=== PATIENT | female | born 1960 | race Caucasian/White ===

== ENCOUNTER 2020-10-11 20:48 | Inpatient (IN) | payer BC, OTHER ==
[2020-10-11] MEDS ORDERED: diphenhydrAMINE 50 MG/ML SDV IVPUSH ONE (21:28)
[2020-10-11] MEDS ORDERED: Ondansetron 4 MG/2 ML SDV IVPUSH ONE (21:28)
[2020-10-11] MEDS ORDERED: Sodium Chloride 0.9% 1,000 ML IV ONE (21:28)
--- NOTE | 2020-10-11 21:38 | EDM.PDOC ---
ED HPI GENERAL MEDICAL PROBLEM - General Chief Complaint: Gastrointestinal Problem Stated Complaint: [facility] Time Seen by Provider: 10/11/20 20:58 Source of Information: Reports: Patient History Limitations: Reports: No Limitations - History of Present Illness INITIAL COMMENTS - FREE TEXT/NARRATIVE: Ms. Cintron is a pleasant 60-year-old woman who is now brought to the ED by EMS stating that she developed dizziness with nausea and 5 episodes of emesis, along with a headache, around 16:00 this afternoon. She is unable to elaborate on her dizziness; she states that it does not feel like she is lightheaded or that she is about to pass out, but she also denies that the room is spinning - she states that she just feels "dizzy". She states that she had BPPV in the past, and that this is different than that. She states that her dizziness is improved if she keeps her eyes closed, but made worse if she opens her eyes. It is also made worse if she turns her head, particularly to the left. The patient reports that she switched from a low-carb diet to a keto diet 3 days ago, including taking a beta hydroxybutyrate supplement. She states that she drinks "quite a bit" of water, but is unable to elaborate how much or for how long. Here in the ED, the patient is found to be hemodynamically stable, afebrile, saturating 100% on room air. She is keeping her eyes closed and is reluctant to answer questions, stating that she has already answered them 4 times, but does not appear to be in acute distress. Prior to this afternoon, the patient denies having a recent fever, chills, sore throat, ear pain, nasal or sinus congestion, cough, dyspnea, chest pain, palpitations, nausea, vomiting, constipation, diarrhea, abdominal pain, urinary symptoms, recent weight gain or weight loss, recent bloody bowel movements or black bowel movements, recent joint aches, headaches, or rashes. The patient's PCP is Dr. Fito Yanez. Headache Pain Score (Numeric/FACES): 10 - Related Data Allergies Allergy/AdvReac Type Severity Reaction Status Date / Time No Known Allergies Allergy Verified 10/11/20 20:55 Home Meds: Home Meds Escitalopram Oxalate 30 mg PO QAM 08/02/13 [History] Levothyroxine Sodium 1 tab PO QAM 08/02/13 [History] Mometasone Furoate [Nasonex [place]] 2 spray HILLARY BID PRN 08/02/13 [History] Venlafaxine HCl [Venlafaxine ER] 1 cap PO QAM 08/02/13 [History] Rosuvastatin [Crestor] 10 mg PO DAILY 10/11/20 [History] metFORMIN [Glucophage] 500 mg PO BIDMEALS 10/11/20 [History] Past Medical History HEENT History: Reports: Allergic Rhinitis Cardiovascular History: Reports: High Cholesterol Psychiatric History: Reports: Anxiety (untreated), Depression Endocrine/Metabolic History: Reports: Diabetes, Type II, Hypothyroidism Oncologic (Cancer) History: Reports: Uterine (s/p hysterectomy) - Past Surgical History GI Surgical History: Reports: Appendectomy Female Surgical History: Reports: Hysterectomy (complete, 2013) Musculoskeletal Surgical History: Reports: Other (See Below) (Left bunionectomy x 4) Social & Family History - Tobacco Use Tobacco Use Status *Q: Never Tobacco User Second Hand Smoke Exposure: No - Alcohol Use Alcohol Use History: Yes Alcohol Use Frequency: Rarely - Recreational Drug Use Recreational Drug Use: No - Living Situation & Occupation Living situation: Reports: Single, Alone Occupation: Employed (Teacher) ED ROS GENERAL - Review of Systems Review Of Systems: Comprehensive ROS is negative, except as noted in HPI. ED EXAM, DIZZINESS - Physical Exam Exam: See Below Exam Limited By: No Limitations General Appearance: Alert, WD/WN, No Apparent Distress Eye Exam: Bilateral Eye: EOMI, Normal Inspection, PERRL Ears: Normal External Exam, Normal Canal, Hearing Grossly Normal, Normal TMs Nose: Normal Inspection, Normal Mucosa, No Blood Throat/Mouth: Normal Inspection, Normal Lips, Normal Teeth, Normal Gums, Normal Oropharynx, Normal Voice, No Airway Compromise Head Exam: Atraumatic, Normocephalic Vertigo: worsens with head to L, reproducible Neck: Normal Inspection, Supple, Non-Tender, Full Range of Motion. No: Lymphadenopathy (L), Lymphadenopathy (R) Respiratory/Chest: No Respiratory Distress, Lungs Clear, Normal Breath Sounds, No Accessory Muscle Use Cardiovascular: Normal Peripheral Pulses, Regular Rate, Rhythm, No Edema, No Gallop, No JVD, No Murmur, No Rub GI/Abdominal: Normal Bowel Sounds, Soft, Non-Tender, No Organomegaly, No Distention, No Abnormal Bruit, No Mass Neurological: Alert, Normal Dorsiflexion, CN II-XII Intact, Normal Plantar Flexion, Normal Reflexes, No Motor/Sensory Deficits, Oriented x 3, Other (Normal hand flip bilaterally, finger/nose bilaterally, heel/mulligan bilaterally. [place]- Hallpike to the left induced dizziness, but no nystagmus. Patient then vomited.) Back Exam: Normal Inspection, Full Range of Motion, NT Extremities: Normal Inspection, Normal Range of Motion, No Pedal Edema, Normal Capillary Refill Psychiatric: Normal Affect Skin Exam: Warm, Dry, Intact, Normal Color, No Rash #1 Interpretation EKG Date: 10/11/20 Time: 21:58 Rhythm: NSR Rate (Beats/Min): 71 [place]: Normal P-Wave: Present QRS: Normal ST-T: Normal QT: Normal Comparison: No Change (02/16/2015) Course - Vital Signs Last Recorded V/S: Last Vital Signs Temp 35.5 C L 10/11/20 20:52 Pulse 68 10/11/20 20:52 Resp 16 10/11/20 20:52 BP 125/64 10/11/20 20:52 Pulse Ox 100 10/11/20 20:52 Orthostatic Blood Pressure [ 132/66 Standing] Orthostatic Blood Pressure [ 139/70 Sitting] Orthostatic Blood Pressure [ 134/63 Supine] - Orders/Labs/Meds Orders: Active Orders 24 hr Category Date Time Status EKG Documentation Completion [RC] STAT Care 10/11/20 21:26 Active Orthostatic Vital Signs [RC] STAT Care 10/11/20 21:26 Active Ang Head [CT] Stat Exams 10/11/20 22:00 Taken Ang Neck [CT] Stat Exams 10/11/20 22:00 Taken Head wo Cont [CT] Stat Exams 10/11/20 21:25 Taken BASIC METABOLIC PANEL,BMP [CHEM] Stat Lab 10/12/20 07:18 Ordered Sodium Chloride 0.9% [Normal Saline] 1,000 ml Med 10/11/20 23:15 Active IV ASDIRECTED Sodium Chloride 0.9% [Normal Saline] 100 ml Med 10/11/20 22:30 Active IV ASDIRECTED Sodium Chloride 0.9% [Saline Flush] Med 10/11/20 22:30 Active 10 ml FLUSH BOLUS Medication Orders Sodium Chloride (Normal Saline) 100 mls @ 60 drops/hr IV ASDIRECTED EMEKA Last Admin: 10/12/20 01:11 Dose: 60 drops/hr Documented by: VELIA Sodium Chloride (Normal Saline) 1,000 mls @ 150 mls/hr IV ASDIRECTED EMEKA Last Admin: 10/12/20 07:26 Dose: 150 mls/hr Documented by: Infusion: 10/12/20 06:38 Dose: 150 mls/hr Documented by: Admin: 10/11/20 23:57 Dose: 150 mls/hr Documented by: RAGHAV Sodium Chloride (Sodium Chloride 0.9% 10 Ml Syringe) 10 ml FLUSH BOLUS EMEKA Last Admin: 10/12/20 01:12 Dose: 10 ml Documented by: VELIA Labs: Laboratory Tests 10/11/20 10/11/20 10/11/20 Range/Units 21:40 21:40 21:40 WBC 6.85 (3.98-10.04) K/mm3 RBC 4.53 (3.98-5.22) M/mm3 Hgb 13.9 D (11.2-15.7) gm/dl Hct 38.7 (34.1-44.9) % MCV 85.4 (79.4-94.8) fl MCH 30.7 (25.6-32.2) pg MCHC 35.9 H (32.2-35.5) g/dl RDW Std Deviation 36.0 L (36.4-46.3) fL Plt Count 252 (182-369) K/mm3 MPV 9.2 L (9.4-12.3) fl Neutrophils % (Manual) 81 H (40-60) % Band Neutrophils % 0 (0-10) % Lymphocytes % (Manual) 16 L (20-40) % Atypical Lymphs % 0 % Monocytes % (Manual) 3 (2-10) % Eosinophils % (Manual) 0 L (0.7-5.8) % Basophils % (Manual) 0 L (0.1-1.2) Platelet Estimate Adequate RBC Morph Comment Normal PT (9.7-12.0) SECONDS INR APTT (21.7-31.4) SECONDS Puncture Site ABG pH (7.35-7.45) ABG pCO2 (35.0-45.0) mmHg ABG pO2 (80.0-100.0) mmHg ABG HCO3 (22.0-26.0) meq/L ABG O2 Saturation (96.0-97.0) % ABG Base Excess (-2-2.0) A-a Gradient mmHg O2 Delivery Device FiO2 (21.00-100.00) % Sodium 122 L D (136-145) mEq/L Potassium 4.1 (3.5-5.1) mEq/L Chloride 87 L D (98-107) mEq/L Carbon Dioxide 21 (21-32) mEq/L Anion Gap 18.1 H (5-15) BUN 11 (7-18) mg/dL Creatinine 0.6 (0.55-1.02) mg/dL Est Cr Clr Drug Dosing 90.84 mL/min Estimated GFR (MDRD) > 60 (>60) mL/min BUN/Creatinine Ratio 18.3 H (14-18) Glucose 161 H (70-99) mg/dL Lactic Acid 1.2 (0.4-2.0) mmol/L Calcium 8.0 L (8.5-10.1) mg/dL Magnesium 1.6 L (1.8-2.4) mg/dL Total Bilirubin 0.6 (0.2-1.0) mg/dL AST 30 (15-37) U/L ALT 40 (14-59) U/L Alkaline Phosphatase 89 (46-116) U/L Troponin I < 0.017 (0.00-0.056) ng/mL Total Protein 6.4 (6.4-8.2) g/dl Albumin 3.4 (3.4-5.0) g/dl Globulin 3.0 gm/dL Albumin/Globulin Ratio 1.1 (1-2) Ketones (0.0-0.3) mM SARS-CoV-2 RNA (KAYLIE) (NEGATIVE) 10/11/20 10/11/20 10/11/20 Range/Units 21:40 21:40 21:51 WBC (3.98-10.04) K/mm3 RBC (3.98-5.22) M/mm3 Hgb (11.2-15.7) gm/dl Hct (34.1-44.9) % MCV (79.4-94.8) fl MCH (25.6-32.2) pg MCHC (32.2-35.5) g/dl RDW Std Deviation (36.4-46.3) fL Plt Count (182-369) K/mm3 MPV (9.4-12.3) fl Neutrophils % (Manual) (40-60) % Band Neutrophils % (0-10) % Lymphocytes % (Manual) (20-40) % Atypical Lymphs % % Monocytes % (Manual) (2-10) % Eosinophils % (Manual) (0.7-5.8) % Basophils % (Manual) (0.1-1.2) Platelet Estimate RBC Morph Comment PT 10.6 (9.7-12.0) SECONDS INR 0.99 APTT 30.1 (21.7-31.4) SECONDS Puncture Site ABG pH (7.35-7.45) ABG pCO2 (35.0-45.0) mmHg ABG pO2 (80.0-100.0) mmHg ABG HCO3 (22.0-26.0) meq/L ABG O2 Saturation (96.0-97.0) % ABG Base Excess (-2-2.0) A-a Gradient mmHg O2 Delivery Device FiO2 (21.00-100.00) % Sodium (136-145) mEq/L Potassium (3.5-5.1) mEq/L Chloride (98-107) mEq/L Carbon Dioxide (21-32) mEq/L Anion Gap (5-15) BUN (7-18) mg/dL Creatinine (0.55-1.02) mg/dL Est Cr Clr Drug Dosing mL/min Estimated GFR (MDRD) (>60) mL/min BUN/Creatinine Ratio (14-18) Glucose (70-99) mg/dL Lactic Acid (0.4-2.0) mmol/L Calcium (8.5-10.1) mg/dL Magnesium (1.8-2.4) mg/dL Total Bilirubin (0.2-1.0) mg/dL AST (15-37) U/L ALT (14-59) U/L Alkaline Phosphatase (46-116) U/L Troponin I (0.00-0.056) ng/mL Total Protein (6.4-8.2) g/dl Albumin (3.4-5.0) g/dl Globulin gm/dL Albumin/Globulin Ratio (1-2) Ketones 1.87 (0.0-0.3) mM SARS-CoV-2 RNA (KYALIE) Negative (NEGATIVE) 10/11/20 10/12/20 Range/Units 22:05 03:20 WBC (3.98-10.04) K/mm3 RBC (3.98-5.22) M/mm3 Hgb (11.2-15.7) gm/dl Hct (34.1-44.9) % MCV (79.4-94.8) fl MCH (25.6-32.2) pg MCHC (32.2-35.5) g/dl RDW Std Deviation (36.4-46.3) fL Plt Count (182-369) K/mm3 MPV (9.4-12.3) fl Neutrophils % (Manual) (40-60) % Band Neutrophils % (0-10) % Lymphocytes % (Manual) (20-40) % Atypical Lymphs % % Monocytes % (Manual) (2-10) % Eosinophils % (Manual) (0.7-5.8) % Basophils % (Manual) (0.1-1.2) Platelet Estimate RBC Morph Comment PT (9.7-12.0) SECONDS INR APTT (21.7-31.4) SECONDS Puncture Site Rt brachial ABG pH 7.38 (7.35-7.45) ABG pCO2 34.6 L (35.0-45.0) mmHg ABG pO2 79.0 L (80.0-100.0) mmHg ABG HCO3 19.9 L (22.0-26.0) meq/L ABG O2 Saturation 95.0 L (96.0-97.0) % ABG Base Excess -4.0 L (-2-2.0) A-a Gradient 27 mmHg O2 Delivery Device Room air FiO2 21.00 (21.00-100.00) % Sodium 130 L (136-145) mEq/L Potassium 4.2 (3.5-5.1) mEq/L Chloride 96 L (98-107) mEq/L Carbon Dioxide 22 (21-32) mEq/L Anion Gap 16.2 H (5-15) BUN 8 (7-18) mg/dL Creatinine 0.6 (0.55-1.02) mg/dL Est Cr Clr Drug Dosing 90.84 mL/min Estimated GFR (MDRD) > 60 (>60) mL/min BUN/Creatinine Ratio 13.3 L (14-18) Glucose 139 H (70-99) mg/dL Lactic Acid (0.4-2.0) mmol/L Calcium 7.9 L (8.5-10.1) mg/dL Magnesium (1.8-2.4) mg/dL Total Bilirubin (0.2-1.0) mg/dL AST (15-37) U/L ALT (14-59) U/L Alkaline Phosphatase (46-116) U/L Troponin I (0.00-0.056) ng/mL Total Protein (6.4-8.2) g/dl Albumin (3.4-5.0) g/dl Globulin gm/dL Albumin/Globulin Ratio (1-2) Ketones (0.0-0.3) mM SARS-CoV-2 RNA (KAYLIE) (NEGATIVE) Meds: Medications Generic Name Dose Route Start Last Admin Trade Name Fresilvia PRN Reason Stop Dose Admin Sodium Chloride 100 mls @ 60 drops/hr 10/11/20 22:30 10/12/20 01:11 Normal Saline IV 60 drops/hr ASDIRECTED EMEKA Administration Sodium Chloride 1,000 mls @ 150 mls/hr 10/11/20 23:15 10/12/20 07:26 Normal Saline IV 150 mls/hr ASDIRECTED EMEKA Administration Sodium Chloride 10 ml 10/11/20 22:30 10/12/20 01:12 Sodium Chloride 0.9% 10 Ml Syringe FLUSH 10 ml BOLUS EMEKA Administration Discontinued Medications Generic Name Dose Route Start Last Admin Trade Name [place] PRN Reason Stop Dose Admin Diphenhydramine HCl 50 mg 10/11/20 21:28 10/11/20 21:47 Diphenhydramine 50 Mg/Ml Sdv IVPUSH 10/11/20 21:29 50 mg ONETIME ONE Administration Sodium Chloride 1,000 mls @ 999 mls/hr 10/11/20 21:28 10/11/20 23:31 Normal Saline IV 10/11/20 22:28 Infused ONETIME ONE Infusion Dextrose/Sodium Chloride 1,000 mls @ 150 mls/hr 10/11/20 22:30 10/11/20 22:32 Dextrose 5%-Normal Saline IV 150 mls/hr ASDIRECTED EMEKA Administration Magnesium Sulfate 2 gm/ Premix 50 mls @ 25 mls/hr 10/11/20 22:57 10/11/20 23:56 IV 10/12/20 00:56 25 mls/hr ONETIME ONE Administration Iopamidol 100 ml 10/11/20 22:24 10/12/20 01:12 Iopamidol 755 Mg/Ml 100 Ml Bottle IVPUSH 10/11/20 22:25 100 ml ONETIME ONE Administration Iopamidol 25 ml 10/11/20 22:24 10/12/20 01:12 Iopamidol 755 Mg/Ml 50 Ml Bottle IVPUSH 10/11/20 22:25 50 ml ONETIME ONE Administration Lorazepam 1 mg 10/12/20 01:36 10/12/20 01:50 Lorazepam 2 Mg/Ml Sdv IVPUSH 10/12/20 01:37 1 mg ONETIME STA Administration Ondansetron HCl 4 mg 10/11/20 21:28 10/11/20 21:47 Ondansetron 4 Mg/2 Ml Sdv IVPUSH 10/11/20 21:29 4 mg ONETIME ONE Administration - Re-Assessments/Exams Free Text/Narrative Re-Assessment/Exam: 10/11/20 21:29 As above, the patient developed dizziness, nausea, vomiting, and headache around 16:00 this afternoon. It is unclear if what she is experiencing is lightheadedness or vertigo. She states that she has had BPPV in the past, and that this is different. She also reports that her dizziness is present even if she remains still, but has her eyes open, and is made worse with turning her head, particularly to the left. Her neurologic examination, including cerebellar signs, is completely normal. I was able to perform the [place]-Hallpike maneuver to the left, which induced symptoms of dizziness, but no nystagmus. When I sat her up, she then vomited. She is simply unable to proceed with checking the [place]-Hallpike maneuver to the right. I have ordered a work-up that includes orthostatics (if the patient is able to perform them), numerous blood tests, an ABG, a swab for the SARS-CoV-2 virus, a CT of the head without contrast, and an ECG. In the meantime, the patient will be given IV fluid, IV Zofran, and IV diphenhydramine. 10/11/20 22:05 [facility] called at 21:44. Case discussed with Monica at 21:51. Case then discussed with Dr. Tinoco, Neurologist on-call at [facility], at 21:53. She recommended a CT angiogram of the head and neck to evaluate for a vertebral artery thrombus or dissection. She noted that the patient would not be a thrombolytic candidate. 10/11/20 22:22 The patient is not orthostatic. I have switched the patient's IV fluid to D5 NS at 150 mL/h. 10/11/20 22:28 CT of the head without contrast is read by [facility] as "Unremarkable examination." 10/11/20 22:56 The patient's CBC is unremarkable. Her CMP is remarkable for hyponatremia of 122, and anion gap slightly elevated at 18.1, but with a bicarbonate normal at 21, and mild hyperglycemia of 161, with the remainder of her CMP being unremarkable. Her magnesium level is mildly depressed at 1.6. Her lactic acid level is within normal limits at 1.2. Her serum ketones are mildly elevated at 1.87. Her troponin is undetectably low. Her coags are within normal limits. Her ABG represents a primary anion gap metabolic acidosis with appropriately compensated respiratory alkalosis and additional metabolic alkalosis. Results of her swab for the SARS-CoV-2 virus, and the CT angiogram of her head and neck are still pending. Based on the above, I have ordered a 2 g Mg-rider. I will switch her IV fluid to NS at 150 mL/h. 10/11/20 23:44 The patient swab for the SARS-CoV-2 virus is negative. 10/12/20 02:45 CT angiogram of the neck with IV contrast is read by [facility] as "No significant stenosis or dissection is present. No major vessel occlusion is identified." 10/12/20 03:06 CT angiogram of the head with IV contrast is read by [facility] as "No significant stenosis or occlusion is identified in the anterior circulation. The posterior circulation is poorly seen." At this time, it appears that the patient's symptoms are due to mild cerebral edema due to hyponatremia due to excessive water intake (water toxicity). The severity of symptoms is often related to the rapidity with which the hyponatremia develops, which, in this case, is most likely acute. As there is no suggestion of renal dysfunction, this should be correctable with NS. I will order a BMP to see how we are doing. With respect to the patient's ketogenic diet and consumption of a beta hydroxybutyrate supplement, we do see from her labs that she has some degree of ketosis, manifested by a modestly elevated serum ketone level, and possibly a small degree of ketoacidosis; her bicarbonate is within normal limits, but her anion gap is mildly elevated at 18.1. This would be expected with mild ketoacidosis, as fasting ketoacidosis produces acetone, which is not an acid and therefore does not consume bicarbonate, but does contribute to an elevation in the anion gap and serum ketone level. Ketosis can lead to dehydration, however, we see no evidence of that, as the patient's sodium is low, not high, and her renal function is normal. While I don't agree with the patient's use of a beta hydroxybutyrate supplement, it does not appear to be a significant contributor to the patient's current condition. 10/12/20 04:16 The patient's BMP is remarkable for sodium of 130, and anion gap slightly elevated at 16.2, but with a bicarbonate normal at 22, and mild hyperglycemia of 139, with the remainder of her BMP being unremarkable. The plan at this time will be to continue NS at 150 mL/h. 10/12/20 07:18 The patient is looking and feeling much better. At this time, she is completely asymptomatic. She reports that she has been drinking a lot of water for about 6 months, but confirmed that she switched from a low-carb diet to a keto diet, including a beta hydroxybutyrate supplement, about 3 or 4 days ago. I will order a repeat BMP at this time, but I recommended to the patient that we place her into observation so that her sodium can be corrected slowly over a day. The patient agreed. 10/12/20 07:[address] Glover, Hospitalist, at 07:40, here in the ED. He agreed to place the patient into observation. Departure - Departure Time of Disposition: 07:40 Disposition: Refer to Observation Condition: Good Clinical Impression: Acute hyponatremia, Hypomagnesemia, Ketosis - Discharge Information *PRESCRIPTION DRUG MONITORING PROGRAM REVIEWED*: Not Applicable *COPY OF PRESCRIPTION DRUG MONITORING REPORT IN PATIENT AMEE: Not Applicable Referrals: Fito Yanez MD [Primary Care Provider] - Forms: ED Department Discharge Sepsis Event Note (ED) - Evaluation Sepsis Screening Result: No Definite Risk - Focused Exam Vital Signs: Vital Signs Temp Pulse Resp BP Pulse Ox 10/11/20 20:52 35.5 C L 68 16 125/64 100 - My Orders Last 24 Hours: My Active Orders 10/11/20 21:25 Head wo Cont [CT] Stat 10/11/20 21:26 EKG Documentation Completion [RC] STAT Orthostatic Vital Signs [RC] STAT 10/11/20 22:00 Ang Head [CT] Stat Ang Neck [CT] Stat 10/11/20 22:30 Sodium Chloride 0.9% [Normal Saline] 100 ml IV ASDIRECTED Sodium Chloride 0.9% [Saline Flush] 10 ml FLUSH BOLUS 10/11/20 23:15 Sodium Chloride 0.9% [Normal Saline] 1,000 ml IV ASDIRECTED 10/12/20 07:18 BASIC METABOLIC PANEL,BMP [CHEM] Stat - Assessment/Plan Last 24 Hours: My Active Orders 10/11/20 21:25 Head wo Cont [CT] Stat 10/11/20 21:26 EKG Documentation Completion [RC] STAT Orthostatic Vital Signs [RC] STAT 10/11/20 22:00 Ang Head [CT] Stat Ang Neck [CT] Stat 10/11/20 22:30 Sodium Chloride 0.9% [Normal Saline] 100 ml IV ASDIRECTED Sodium Chloride 0.9% [Saline Flush] 10 ml FLUSH BOLUS 10/11/20 23:15 Sodium Chloride 0.9% [Normal Saline] 1,000 ml IV ASDIRECTED 10/12/20 07:18 BASIC METABOLIC PANEL,BMP [CHEM] Stat
[2020-10-11] MEDS ORDERED: Iopamidol 755 Mg/ML 100 ML Bottle IVPUSH ONE (22:24)
[2020-10-11] MEDS ORDERED: Iopamidol 755 MG/ML 50 ML Bottle IVPUSH ONE (22:24)
[2020-10-11] MEDS ORDERED: Sodium Chloride 0.9% 10 ML Syringe FLUSH SCH (22:30)
[2020-10-11] MEDS ORDERED: Sodium Chloride 0.9% 100 ML IV SCH (22:30)
[2020-10-11] MEDS ORDERED: Dextrose 5%-0.9% NaCl 1,000 ML IV SCH (22:30)
[2020-10-11] MEDS ORDERED: Magnesium Sulfate/Water 2 GM in Premix Bag 1 BAG IV ONE (22:57)
[2020-10-11] MEDS: Sodium Chloride 0.9% 1,000 ML IV SCH (23:57)
[2020-10-12] MEDS ORDERED: LORazepam 2 MG/ML SDV IVPUSH STA (01:36)
[2020-10-12] MEDS: Sodium Chloride 0.9% 1,000 ML IV SCH (07:26)
[2020-10-12] MEDS ORDERED: Docusate Sodium 100 MG Cap PO PRN (07:54)
[2020-10-12] MEDS ORDERED: Ondansetron 4 MG Tab.DIS PO PRN (07:54)
--- NOTE | 2020-10-12 08:04 | PCM.HP.2 ---
H&P History of Present Illness - General Date of Service: 10/12/20 Admit Problem/Dx: Admission Diagnosis/Problem Admission Diagnosis/Problem Hyponatremia Source of Information: Patient, Provider - History of Present Illness Initial Comments - Free Text/Narative: Patient is a 60-year-old female with a past medical history significant for hypothyroidism, type 2 diabetes mellitus, uterine cancer status post hysterectomy who presents to the [facility] emergency department with a chief complaint of lightheadedness/dizziness, vertigo change in his symptoms, nausea and vomiting. Patient states that she has been feeling unwell for the past 72 hours after starting a new diet plan to limit her carbohydrates. She has recently begun a keto diet. She has also been taking random supplements. She has been drinking at least 8 to 10, 20oz cups of water per day. She has been generally feeling unwell for the past 2 to 3 days which culminated in significant weakness, and the aforementioned symptoms. The room spinning around her was the most problematic for her as this was causing significant debra sea and vomiting. This is what prompted her visit to the emergency department. Patient states that she has a history of benign positional vertigo, but this felt different than that. Imaging of her head and CTA were negative for acute neurologic event. Laboratory studies were notable for sodium of 122. As BPV was a possible diagnosis the patient underwent examination in the emergency department which was negative for nystagmus. Dulce-Hallpike maneuver did not eliminate her symptoms. The patient was administered normal saline at 150 mL/h overnight. It is reported by ER personnel as the patient is doing a lot better and is nearly asymptomatic. Her sodium levels have climbed to 130 in 5-1/2 hours. The patient was referred for admission for symptomatic hyponatremia and further correction if needed. Of note, the patient takes medication for depression and anxiety which was likely contributing to her hyponatremia. 14 point review of systems was reviewed with the patient entirely and only pertinent for the above information. CODE STATUS: Full code. Headache Pain Score (Numeric/FACES): 10 - Related Data Allergies/Adverse Reactions: Allergies Allergy/AdvReac Type Severity Reaction Status Date / Time No Known Allergies Allergy Verified 10/11/20 20:55 Home Medications: Home Meds Escitalopram Oxalate 30 mg PO QAM 08/02/13 [History] Levothyroxine Sodium 1 tab PO QAM 08/02/13 [History] Mometasone Furoate [Nasonex [place]] 2 spray HILLARY BID PRN 08/02/13 [History] Venlafaxine HCl [Venlafaxine ER] 1 cap PO QAM 08/02/13 [History] Rosuvastatin [Crestor] 10 mg PO DAILY 10/11/20 [History] metFORMIN [Glucophage] 500 mg PO BIDMEALS 10/11/20 [History] Past Medical History HEENT History: Reports: Allergic Rhinitis Cardiovascular History: Reports: High Cholesterol Psychiatric History: Reports: Anxiety (untreated), Depression Endocrine/Metabolic History: Reports: Diabetes, Type II, Hypothyroidism Oncologic (Cancer) History: Reports: Uterine (s/p hysterectomy) Other Oncologic History: cancer of the uterine lining - Past Surgical History GI Surgical History: Reports: Appendectomy Female Surgical History: Reports: Hysterectomy (complete, 2013) Musculoskeletal Surgical History: Reports: Other (See Below) (Left bunionectomy x 4) Social & Family History - Tobacco Use Tobacco Use Status *Q: Never Tobacco User Second Hand Smoke Exposure: No - Recreational Drug Use Recreational Drug Use: No - Living Situation & Occupation Living situation: Reports: Single, Alone Occupation: Employed (Teacher) H&P Review of Systems - Review of Systems: Review Of Systems: Comprehensive ROS is negative, except as noted in HPI. Exam - Exam Exam: See Below - Vital Signs Vital Signs: Last Vital Signs Temp 96 F L 10/11/20 20:52 Pulse 68 10/11/20 20:52 Resp 16 10/11/20 20:52 BP 125/64 10/11/20 20:52 Pulse Ox 100 10/11/20 20:52 Orthostatic Blood Pressure [ 132/66 Standing] Orthostatic Blood Pressure [ 139/70 Sitting] Orthostatic Blood Pressure [ 134/63 Supine] Weight: 171 lb - Exam General: Alert, Oriented HEENT: Conjunctiva Clear, EOMI, Mucosa Moist & [place], Nares Patent Neck: Supple Lungs: Clear to Auscultation, Normal Respiratory Effort Cardiovascular: Regular Rate, Regular Rhythm GI/Abdominal Exam: Normal Bowel Sounds, Soft, Non-Tender Extremities: Normal Inspection, No Pedal Edema Skin: Warm, Dry Neurological: Cranial Nerves Intact, Other (No nystagmus) Neuro Extensive - Mental Status: Oriented x3 Neuro Extensive - Motor, Sensory, Reflexes: No: Tremor - Patient Data Lab Results Last 24 hrs: Laboratory Results - last 24 hr 10/11/20 10/11/20 10/11/20 Range/Units 21:40 21:40 21:40 WBC 6.85 (3.98-10.04) K/mm3 RBC 4.53 (3.98-5.22) M/mm3 Hgb 13.9 D (11.2-15.7) gm/dl Hct 38.7 (34.1-44.9) % MCV 85.4 (79.4-94.8) fl MCH 30.7 (25.6-32.2) pg MCHC 35.9 H (32.2-35.5) g/dl RDW Std Deviation 36.0 L (36.4-46.3) fL Plt Count 252 (182-369) K/mm3 MPV 9.2 L (9.4-12.3) fl Neutrophils % (Manual) 81 H (40-60) % Band Neutrophils % 0 (0-10) % Lymphocytes % (Manual) 16 L (20-40) % Atypical Lymphs % 0 % Monocytes % (Manual) 3 (2-10) % Eosinophils % (Manual) 0 L (0.7-5.8) % Basophils % (Manual) 0 L (0.1-1.2) Platelet Estimate Adequate RBC Morph Comment Normal PT (9.7-12.0) SECONDS INR APTT (21.7-31.4) SECONDS Puncture Site ABG pH (7.35-7.45) ABG pCO2 (35.0-45.0) mmHg ABG pO2 (80.0-100.0) mmHg ABG HCO3 (22.0-26.0) meq/L ABG O2 Saturation (96.0-97.0) % ABG Base Excess (-2-2.0) A-a Gradient mmHg O2 Delivery Device FiO2 (21.00-100.00) % Sodium 122 L D (136-145) mEq/L Potassium 4.1 (3.5-5.1) mEq/L Chloride 87 L D (98-107) mEq/L Carbon Dioxide 21 (21-32) mEq/L Anion Gap 18.1 H (5-15) BUN 11 (7-18) mg/dL Creatinine 0.6 (0.55-1.02) mg/dL Est Cr Clr Drug Dosing 90.84 mL/min Estimated GFR (MDRD) > 60 (>60) mL/min BUN/Creatinine Ratio 18.3 H (14-18) Glucose 161 H (70-99) mg/dL Lactic Acid 1.2 (0.4-2.0) mmol/L Calcium 8.0 L (8.5-10.1) mg/dL Magnesium 1.6 L (1.8-2.4) mg/dL Total Bilirubin 0.6 (0.2-1.0) mg/dL AST 30 (15-37) U/L ALT 40 (14-59) U/L Alkaline Phosphatase 89 (46-116) U/L Troponin I < 0.017 (0.00-0.056) ng/mL Total Protein 6.4 (6.4-8.2) g/dl Albumin 3.4 (3.4-5.0) g/dl Globulin 3.0 gm/dL Albumin/Globulin Ratio 1.1 (1-2) Ketones (0.0-0.3) mM SARS-CoV-2 RNA (KAYLIE) (NEGATIVE) 10/11/20 10/11/20 10/11/20 Range/Units 21:40 21:40 21:51 WBC (3.98-10.04) K/mm3 RBC (3.98-5.22) M/mm3 Hgb (11.2-15.7) gm/dl Hct (34.1-44.9) % MCV (79.4-94.8) fl MCH (25.6-32.2) pg MCHC (32.2-35.5) g/dl RDW Std Deviation (36.4-46.3) fL Plt Count (182-369) K/mm3 MPV (9.4-12.3) fl Neutrophils % (Manual) (40-60) % Band Neutrophils % (0-10) % Lymphocytes % (Manual) (20-40) % Atypical Lymphs % % Monocytes % (Manual) (2-10) % Eosinophils % (Manual) (0.7-5.8) % Basophils % (Manual) (0.1-1.2) Platelet Estimate RBC Morph Comment PT 10.6 (9.7-12.0) SECONDS INR 0.99 APTT 30.1 (21.7-31.4) SECONDS Puncture Site ABG pH (7.35-7.45) ABG pCO2 (35.0-45.0) mmHg ABG pO2 (80.0-100.0) mmHg ABG HCO3 (22.0-26.0) meq/L ABG O2 Saturation (96.0-97.0) % ABG Base Excess (-2-2.0) A-a Gradient mmHg O2 Delivery Device FiO2 (21.00-100.00) % Sodium (136-145) mEq/L Potassium (3.5-5.1) mEq/L Chloride (98-107) mEq/L Carbon Dioxide (21-32) mEq/L Anion Gap (5-15) BUN (7-18) mg/dL Creatinine (0.55-1.02) mg/dL Est Cr Clr Drug Dosing mL/min Estimated GFR (MDRD) (>60) mL/min BUN/Creatinine Ratio (14-18) Glucose (70-99) mg/dL Lactic Acid (0.4-2.0) mmol/L Calcium (8.5-10.1) mg/dL Magnesium (1.8-2.4) mg/dL Total Bilirubin (0.2-1.0) mg/dL AST (15-37) U/L ALT (14-59) U/L Alkaline Phosphatase (46-116) U/L Troponin I (0.00-0.056) ng/mL Total Protein (6.4-8.2) g/dl Albumin (3.4-5.0) g/dl Globulin gm/dL Albumin/Globulin Ratio (1-2) Ketones 1.87 (0.0-0.3) mM SARS-CoV-2 RNA (KAYLIE) Negative (NEGATIVE) 10/11/20 10/12/20 Range/Units 22:05 03:20 WBC (3.98-10.04) K/mm3 RBC (3.98-5.22) M/mm3 Hgb (11.2-15.7) gm/dl Hct (34.1-44.9) % MCV (79.4-94.8) fl MCH (25.6-32.2) pg MCHC (32.2-35.5) g/dl RDW Std Deviation (36.4-46.3) fL Plt Count (182-369) K/mm3 MPV (9.4-12.3) fl Neutrophils % (Manual) (40-60) % Band Neutrophils % (0-10) % Lymphocytes % (Manual) (20-40) % Atypical Lymphs % % Monocytes % (Manual) (2-10) % Eosinophils % (Manual) (0.7-5.8) % Basophils % (Manual) (0.1-1.2) Platelet Estimate RBC Morph Comment PT (9.7-12.0) SECONDS INR APTT (21.7-31.4) SECONDS Puncture Site Rt brachial ABG pH 7.38 (7.35-7.45) ABG pCO2 34.6 L (35.0-45.0) mmHg ABG pO2 79.0 L (80.0-100.0) mmHg ABG HCO3 19.9 L (22.0-26.0) meq/L ABG O2 Saturation 95.0 L (96.0-97.0) % ABG Base Excess -4.0 L (-2-2.0) A-a Gradient 27 mmHg O2 Delivery Device Room air FiO2 21.00 (21.00-100.00) % Sodium 130 L (136-145) mEq/L Potassium 4.2 (3.5-5.1) mEq/L Chloride 96 L (98-107) mEq/L Carbon Dioxide 22 (21-32) mEq/L Anion Gap 16.2 H (5-15) BUN 8 (7-18) mg/dL Creatinine 0.6 (0.55-1.02) mg/dL Est Cr Clr Drug Dosing 90.84 mL/min Estimated GFR (MDRD) > 60 (>60) mL/min BUN/Creatinine Ratio 13.3 L (14-18) Glucose 139 H (70-99) mg/dL Lactic Acid (0.4-2.0) mmol/L Calcium 7.9 L (8.5-10.1) mg/dL Magnesium (1.8-2.4) mg/dL Total Bilirubin (0.2-1.0) mg/dL AST (15-37) U/L ALT (14-59) U/L Alkaline Phosphatase (46-116) U/L Troponin I (0.00-0.056) ng/mL Total Protein (6.4-8.2) g/dl Albumin (3.4-5.0) g/dl Globulin gm/dL Albumin/Globulin Ratio (1-2) Ketones (0.0-0.3) mM SARS-CoV-2 RNA (KAYLIE) (NEGATIVE) Result Diagrams: 10/11/20 21:40 10/12/20 07:40 Sepsis Event Note - Evaluation Sepsis Screening Result: No Definite Risk - Focused Exam Vital Signs: Vital Signs Temp Pulse Resp BP Pulse Ox 10/11/20 20:52 96 F L 68 16 125/64 100 Problem List Initiated/Reviewed/Updated: Yes Orders Last 24hrs: Active Orders 24 hr Category Date Time Status Patient Status [ADT] Routine ADT 10/12/20 07:54 Ordered EKG Documentation Completion [RC] STAT Care 10/11/20 21:26 Active Intake and Output [RC] QSHIFT Care 10/12/20 07:55 Ordered Orthostatic Vital Signs [RC] STAT Care 10/11/20 21:26 Active Oxygen Therapy [RC] PRN Care 10/12/20 07:54 Ordered Up ad Valarie [RC] ASDIRECTED Care 10/12/20 07:54 Ordered VTE/DVT Education [RC] PER UNIT ROUTINE Care 10/12/20 07:54 Ordered Vital Signs [RC] Q4H Care 10/12/20 07:54 Ordered Consistent Carbohydrate Diet [DIET] Diet 10/12/20 Breakfast Ordered Ang Head [CT] Stat Exams 10/11/20 22:00 Taken Ang Neck [CT] Stat Exams 10/11/20 22:00 Taken Head wo Cont [CT] Stat Exams 10/11/20 21:25 Taken BASIC METABOLIC PANEL,BMP [CHEM] Routine Lab 10/12/20 12:00 Ordered BASIC METABOLIC PANEL,BMP [CHEM] Stat Lab 10/12/20 07:40 Received Docusate Sodium [Colace] Med 10/12/20 07:54 Ordered 100 mg PO BID PRN Heparin Sodium Med 10/12/20 08:00 Ordered 5,000 units SUBCUT Q8H Ondansetron [Zofran ODT] Med 10/12/20 07:54 Ordered 4 mg PO Q4H PRN Sodium Chloride 0.9% [Normal Saline] 1,000 ml Med 10/11/20 23:15 Active IV ASDIRECTED Sodium Chloride 0.9% [Normal Saline] 100 ml Med 10/11/20 22:30 Active IV ASDIRECTED Sodium Chloride 0.9% [Saline Flush] Med 10/11/20 22:30 Active 10 ml FLUSH BOLUS Resuscitation Status Routine Resus Stat 10/12/20 07:54 Ordered Medication Orders Sodium Chloride (Normal Saline) 100 mls @ 60 drops/hr IV ASDIRECTED EMEKA Last Admin: 10/12/20 01:11 Dose: 60 drops/hr Documented by: VELIA Sodium Chloride (Normal Saline) 1,000 mls @ 150 mls/hr IV ASDIRECTED EMEKA Last Admin: 10/12/20 07:26 Dose: 150 mls/hr Documented by: Infusion: 10/12/20 06:38 Dose: 150 mls/hr Documented by: Admin: 10/11/20 23:57 Dose: 150 mls/hr Documented by: RAGHAV Sodium Chloride (Sodium Chloride 0.9% 10 Ml Syringe) 10 ml FLUSH BOLUS [facility] Last Admin: 10/12/20 01:12 Dose: 10 ml Documented by: VELIA Assessment/Plan Comment:: 60-year-old female with a past medical history as noted above who presents to the [facility] emergency department with acute neurologic symptoms consistent with symptomatic hyponatremia due to polydipsia and combination with poor p.o. intake. 1. Symptomatic hyponatremia. Secondary to multiple contributing factors such as polydipsia, SSRI use, poor p.o. intake. Admit to the hospital service for further management. Discontinue normal saline infusion considering rapid correction from 122-130 in a 5-hour span. Recheck labs every 4 hours. 800 cc fluid restriction. Hold Lexapro. Frequent neurologic checks. 2. Type 2 diabetes mellitus. Hold metformin. Monitor renal function as she has received contrast. Invoke hospital hyperglycemia protocol. 3. Subjective history of hypothyroidism. Check TSH. We will need to reconcile Synthroid dose. 4. Anxiety and depression. Hold Lexapro. May continue venlafaxine. CODE STATUS: Full code. DVT prophylaxis with heparin - Mortality Measure Prognosis:: Good
[2020-10-12] MEDS ORDERED: MOMETASONE FUROATE 17 GM NAS PRN (08:06)
[2020-10-12] MEDS: Rosuvastatin 10 MG Tab PO SCH (10:06)
[2020-10-12] MEDS: Heparin Sodium 5,000 Units/ML Vial SUBCUT SCH ×3 (10:06→23:38)
--- NOTE | 2020-10-12 14:37 | CT ---
CT angiogram of the brain Technique: Multiple axial sections to the brain were obtained. Intravenous contrast was utilized. Study was obtained during the arterial phase. Additional reconstructed images were obtained. Comparison: No prior intracranial vascular imaging is available. Findings: Distal internal carotid arteries are patent. Proximal middle cerebral and anterior cerebral arteries show no focal stenosis. Two distal vertebral arteries are seen with patent basilar artery. Patent posterior cerebral arteries are also present. No definite findings of aneurysm are seen. Impression: 1. No findings of stenosis or occlusion is seen within the anterior, middle or posterior cerebral arteries. Diagnostic code #1 I agree with preliminary report from [facility], finalized on 10/12/20, 3:11 AM CDT, code 1
--- NOTE | 2020-10-12 14:37 | CT ---
CT angiogram of neck Technique: Multiple axial sections through the neck were obtained. Intravenous contrast was utilized during the arterial phase. Reconstructed coronal and sagittal images were obtained. Findings: Common carotid arteries show no stenosis. Carotid bulbs show no stenosis. Internal carotid artery show no stenosis. Both vertebral arteries are patent into the basilar artery. Visualized lung apices show nothing acute. No discrete soft tissue abnormality is appreciated within the neck. Impression: 1. No findings of stenosis or occlusion are seen within the common carotid arteries, internal carotid arteries or within the vertebral arteries. Diagnostic code #1 I agree with preliminary report from [facility], finalized on 10/12/20, 3:11 AM CDT, code 1
--- NOTE | 2020-10-12 14:38 | CT ---
Head CT Technique: Multiple axial sections through the brain were obtained. Intravenous contrast was not utilized. Reconstructed coronal and sagittal images were obtained. Comparison: Prior head CT study of 02/16/15. Findings: Ventricles along with basal cisterns and sulci over the convexities are within normal limits for the patient's age. No abnormal parenchymal densities are seen. No evidence of intracranial hemorrhage is seen. No midline shift or mass-effect is seen. Bone window settings were reviewed. No acute calvarial abnormality is seen. Visualized mastoid sinuses and paranasal sinuses show nothing acute. Impression: 1. Nothing acute is appreciated on noncontrast head CT study. 2. No change from previous exam is seen. Diagnostic code #1 I agree with preliminary report from [facility], finalized on 10/11/20, 11:18 PM CDT, code 1
--- NOTE | 2020-10-13 07:57 | PCM.DCSUM1 ---
Discharge Summary - Hospital Course Free Text/Narrative:: 60-year-old female who presented to the [facility] emergency department with acute neurologic symptoms consistent with symptomatic hyponatremia due to polydipsia and combination with poor p.o. intake while on an SSRI 1. Symptomatic hyponatremia. 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 intake. Admitted to the hospitalist service for further management. Patient received a significant amount of normal saline infusion while in the emergency department over a 5-hour period. Original sodium level of 122 corrected to 130 within 5 hours. Within 9 hours was 137. Labs were rechecked every 4 hours. 800 cc fluid restriction was invoked. Lexapro was held while admitted. Frequent neurologic checks only revealed resolution of symptoms as time went by. At time of discharge sodium is at 144 without any neurologic deficits. Patient feels well and is wishing to go home. Patient educated on the effects of polydipsia and while on SSRI. Patient may resume taking Lexapro. 2. Type 2 diabetes mellitus. Held metformin. Monitor renal function as she has received contrast. Patient placed on hospital hyperglycemia protocol. 3. Anxiety and depression. Held Lexapro while in the hospital. May continue both this medication and venlafaxine post discharge. CODE STATUS: Full code. DVT prophylaxis with heparin HPI Initial Comments: Initial Comments - Free Text/Narative: Patient is a 60-year-old female with a past medical history significant for hypothyroidism, type 2 diabetes mellitus, uterine cancer status post hys terectomy who presents to the [facility] emergency department with a chief complaint of lightheadedness/dizziness, vertigo change in his symptoms, nausea and vomiting. Patient states that she has been feeling unwell for the past 72 hours after starting a new diet plan to limit her carbohydrates. She has recently begun a keto diet. She has also been taking random supplements. She has been drinking at least 8 to 10, 20oz cups of water per day. She has been generally feeling unwell for the past 2 to 3 days which culminated in significant weakness, and the aforementioned symptoms. The room spinning around her was the most problematic for her as this was causing significant nausea and vomiting. This is what prompted her visit to the emergency department. Patient states that she has a history of benign positional vertigo, but this felt different than that. Imaging of her head and CTA were negative for acute neurologic event. Laboratory studies were notable for sodium of 122. As BPV was a possible diagnosis the patient underwent examination in the emergency department which was negative for nystagmus. Dulce-Hallpike maneuver did not eliminate her symptoms. The patient was administered normal saline at 150 mL/h overnight. It is reported by ER personnel as the patient is doing a lot better and is nearly asymptomatic. Her sodium levels have climbed to 130 in 5-1/2 hours. The patient was referred for admission for symptomatic hyponatremia and further correction if needed. Of note, the patient takes medication for depression and anxiety which was likely contributing to her hyponatremia. 14 point review of systems was reviewed with the patient entirely and only pertinent for the above information. CODE STATUS: Full code. Headache Pain Score (Numeric/FACES): 10 - Related Data Allergies/Adverse Reactions: Allergies Allergy/AdvReac Type Severity Reaction Status Date / Time No Known Allergies Allergy Verified 10/11/20 20:55 Home Medications: Home Meds Escitalopram Oxalate 30 mg PO QAM 08/02/13 [History] Levothyroxine Sodium 1 tab PO QAM 08/02/13 [History] Mometasone Furoate [Nasonex York] 2 spray HILLARY BID PRN 08/02/13 [History] Venlafaxine HCl [Venlafaxine ER] 1 cap PO QAM 08/02/13 [History] Rosuvastatin [Crestor] 10 mg PO DAILY 10/11/20 [History] metFORMIN [Glucophage] 500 mg PO BIDMEALS 10/11/20 [History] Past Medical History HEENT History: Reports: Allergic Rhinitis Cardiovascular History: Reports: High Cholesterol Psychiatric History: Reports: Anxiety (untreated), Depression Endocrine/Metabolic History: Reports: Diabetes, Type II, Hypothyroidism Oncologic (Cancer) History: Reports: Uterine (s/p hysterectomy) Other Oncologic History: cancer of the uterine lining - Past Surgical History GI Surgical History: Reports: Appendectomy Female Surgical History: Reports: Hysterectomy (complete, 2013) Musculoskeletal Surgical History: Reports: Other (See Below) (Left bunionectomy x 4) Social & Family History - Tobacco Use Tobacco Use Status *Q: Never Tobacco User Second Hand Smoke Exposure: No - Recreational Drug Use Recreational Drug Use: No - Living Situation & Occupation Living situation: Reports: Single, Alone Occupation: Employed (Teacher) H&P Review of Systems - Review of Systems: Review Of Systems: Comprehensive ROS is negative, except as noted in HPI. Exam - Exam Exam: See Below - Vital Signs Vital Signs: Last Vital Signs Temp 96 F L 10/11/20 20:52 Pulse 68 10/11/20 20:52 Resp 16 10/11/20 20:52 BP 125/64 10/11/20 20:52 Pulse Ox 100 10/11/20 20:52 Orthostatic Blood Pressure [ 132/66 Standing] Orthostatic Blood Pressure [ 139/70 Sitting] Orthostatic Blood Pressure [ 134/63 Supine] Weight: 171 lb - Exam General: Alert, Oriented HEENT: Conjunctiva Clear, EOMI, Mucosa Moist & [place], Nares Patent Neck: Supple Lungs: Clear to Auscultation, Normal Respiratory Effort Cardiovascular: Regular Rate, Regular Rhythm GI/Abdominal Exam: Normal Bowel Sounds, Soft, Non-Tender Extremities: Normal Inspection, No Pedal Edema Skin: Warm, Dry Neurological: Cranial Nerves Intact, Other (No nystagmus) Neuro Extensive - Mental Status: Oriented x3 Neuro Extensive - Motor, Sensory, Reflexes: No: Tremor - Discharge Data Discharge Date: 10/13/20 Discharge Disposition: Home, Self-Care 01 Condition: Good - Referral to Home Health Primary Care Physician: Fito Yanez MD - Discharge Plan *PRESCRIPTION DRUG MONITORING PROGRAM REVIEWED*: Not Applicable *COPY OF PRESCRIPTION DRUG MONITORING REPORT IN PATIENT AMEE: Not Applicable Home Medications: Home Meds Levothyroxine Sodium 88 mcg PO DAILY 08/02/13 [History] Mometasone Furoate [Nasonex [place]] 2 spray HILLARY BID PRN 08/02/13 [History] Venlafaxine HCl [Venlafaxine ER] 75 mg PO DAILY 08/02/13 [History] Rosuvastatin [Crestor] 10 mg PO DAILY 10/11/20 [History] metFORMIN [Glucophage] 500 mg PO BIDMEALS 10/11/20 [History] Patient Handouts: Hyponatremia Forms: ED Department Discharge Referrals: Fito Yanez MD [Primary Care Provider] - - Discharge Summary/Plan Comment DC Time >30 min.: No - General Info Date of Service: 10/13/20 Admission Dx/Problem (Free Text: Admission Diagnosis/Problem Admission Diagnosis/Problem Hyponatremia Subjective Update: No acute events overnight. No new nursing concerns. Patient does not endorse any specific complaints. She no reports of confusion, hallucinations, lightheadedness/dizziness, vertigo, nausea/vomiting. - Patient Data Vitals - Most Recent: Last Vital Signs Temp 98.1 F 10/13/20 05:46 Pulse 57 L 10/13/20 05:46 Resp 14 10/13/20 05:46 BP 104/50 L 10/13/20 05:46 Pulse Ox 95 10/13/20 05:46 Orthostatic Blood Pressure [ 132/66 Standing] Orthostatic Blood Pressure [ 139/70 Sitting] Orthostatic Blood Pressure [ 134/63 Supine] Weight - Most Recent: 172 lb 1.6 oz I&O - Last 24 hours: Intake & Output 10/12/20 10/13/20 10/13/20 22:59 06:59 14:59 Intake Total 0 150 Output Total 1700 1500 Balance -1700 -1350 Lab Results - Last 24 hrs: Laboratory Results - last 24 hr 10/12/20 10/12/20 10/13/20 Range/Units 07:40 12:04 05:30 Sodium 133 L 137 144 (136-145) mEq/L Potassium 4.0 3.7 4.1 (3.5-5.1) mEq/L Chloride 99 100 110 H (98-107) mEq/L Carbon Dioxide 24 30 26 (21-32) mEq/L Anion Gap 14.0 10.7 12.1 (5-15) BUN 6 L 8 13 (7-18) mg/dL Creatinine 0.6 1.0 0.7 (0.55-1.02) mg/dL Est Cr Clr Drug Dosing 90.84 54.51 77.87 mL/min Estimated GFR (MDRD) > 60 57 > 60 (>60) mL/min BUN/Creatinine Ratio 10.0 L 8.0 L 18.6 H (14-18) Glucose 94 94 91 (70-99) mg/dL Calcium 8.4 L 8.7 8.6 (8.5-10.1) mg/dL TSH 3rd Generation 3.127 (0.358-3.74) uIU/mL Med Orders - Current: Current Medications Docusate Sodium (Docusate Sodium 100 Mg Cap) 100 mg PO BID PRN PRN Reason: Constipation Heparin Sodium (Porcine) (Heparin Sodium 5,000 Units/Ml Vial) 5,000 units SUBCUT Q8H [facility] Last Admin: 10/12/20 23:38 Dose: 5,000 units Documented by: Levothyroxine Sodium (Levothyroxine 100 Mcg Tab) 100 mcg PO QAM [facility] Non-Formulary Medication (Mometasone Furoate) 2 spray HILLARY BID PRN PRN Reason: Allergies Ondansetron HCl (Ondansetron 4 Mg Tab.Dis) 4 mg PO Q4H PRN PRN Reason: nausea, able to take PO Rosuvastatin Calcium (Rosuvastatin 10 Mg Tab) 10 mg PO DAILY [facility] Last Admin: 10/12/20 10:06 Dose: 10 mg Documented by: Sodium Chloride (Sodium Chloride 0.9% 10 Ml Syringe) 10 ml FLUSH BOLUS [facility] Last Admin: 10/12/20 01:12 Dose: 10 ml Documented by: Venlafaxine HCl (Venlafaxine 75 Mg Cap.Er) 75 mg PO DAILY [facility] Discontinued Medications Diphenhydramine HCl (Diphenhydramine 50 Mg/Ml Sdv) 50 mg IVPUSH ONETIME ONE Stop: 10/11/20 21:29 Last Admin: 10/11/20 21:47 Dose: 50 mg Documented by: Sodium Chloride (Normal Saline) 1,000 mls @ 999 mls/hr IV ONETIME ONE Stop: 10/11/20 22:28 Last Infusion: 10/11/20 23:31 Dose: Infused Documented by: Dextrose/Sodium Chloride (Dextrose 5%-Normal Saline) 1,000 mls @ 150 mls/hr IV ASDIRECTED [facility] Last Admin: 10/11/20 22:32 Dose: 150 mls/hr Documented by: Sodium Chloride (Normal Saline) 100 mls @ 60 drops/hr IV ASDIRECTED [facility] Last Admin: 10/12/20 01:11 Dose: 60 drops/hr Documented by: Magnesium Sulfate 2 gm/ Premix 50 mls @ 25 mls/hr IV ONETIME ONE Stop: 10/12/20 00:56 Last Admin: 10/11/20 23:56 Dose: 25 mls/hr Documented by: Sodium Chloride (Normal Saline) 1,000 mls @ 150 mls/hr IV ASDIRECTED [facility] Last Admin: 10/12/20 07:26 Dose: 150 mls/hr Documented by: Iopamidol (Iopamidol 755 Mg/Ml 100 Ml Bottle) 100 ml IVPUSH ONETIME ONE Stop: 10/11/20 22:25 Last Admin: 10/12/20 01:12 Dose: 100 ml Documented by: Iopamidol (Iopamidol 755 Mg/Ml 50 Ml Bottle) 25 ml IVPUSH ONETIME ONE Stop: 10/11/20 22:25 Last Admin: 10/12/20 01:12 Dose: 50 ml Documented by: Lorazepam (Lorazepam 2 Mg/Ml Sdv) 1 mg IVPUSH ONETIME STA Stop: 10/12/20 01:37 Last Admin: 10/12/20 01:50 Dose: 1 mg Documented by: Ondansetron HCl (Ondansetron 4 Mg/2 Ml Sdv) 4 mg IVPUSH ONETIME ONE Stop: 10/11/20 21:29 Last Admin: 10/11/20 21:47 Dose: 4 mg Documented by: - Exam Quality Assessment: Reports: DVT Prophylaxis General: Reports: Alert, Oriented, Cooperative, No Acute Distress HEENT: Reports: Pupils Equal, EOMI, Other (No nystagmus) Lungs: Reports: Clear to Auscultation, Normal Respiratory Effort Cardiovascular: Reports: Regular Rate GI/Abdominal Exam: Normal Bowel Sounds, Soft, Non-Tender Extremities: Normal Inspection, No Pedal Edema Skin: Reports: Warm, Dry Neurological: Reports: No New Focal Deficit, Normal Gait, Normal Speech Psy/Mental Status: Reports: Normal Mood
[2020-10-13] MEDS ORDERED: Levothyroxine 100 MCG Tab PO SCH (08:00)
[2020-10-13 08:10] VITALS: BP 108/66; PULSE 56
[2020-10-13] MEDS: Heparin Sodium 5,000 Units/ML Vial SUBCUT SCH (08:45)
[2020-10-13] MEDS: Rosuvastatin 10 MG Tab PO SCH (08:45)
[2020-10-13] MEDS ORDERED: Venlafaxine 75 MG Cap.ER PO SCH (09:00)
== END 2020-10-13 09:28 | disposition home or self-care (01) | DRG 641 ==
LOC: JD.ED 20:48 → JD.MS 10-12 07:54
PROVIDERS: ADMIT Hospitalist; ATTEND Hospitalist
DX: E87.1 Hypo-osmolality and hyponatremia (principal); E87.3 Alkalosis; E03.9 Hypothyroidism, unspecified; F41.9 Anxiety disorder, unspecified; F32.9 Major depressive disorder, single episode, unspecified; E78.00 Pure hypercholesterolemia, unspecified; J30.9 Allergic rhinitis, unspecified; E83.42 Hypomagnesemia; Z20.822 Contact with and (suspected) exposure to COVID-19; E11.65 Type 2 diabetes mellitus with hyperglycemia; Z79.84 Long term (current) use of oral hypoglycemic drugs; Z79.890 Hormone replacement therapy; Z79.899 Other long term (current) drug therapy; Z90.710 Acquired absence of both cervix and uterus; Z90.49 Acquired absence of other specified parts of digestive tract; Z85.42 Personal history of malignant neoplasm of other parts of uterus
CPT/HCPCS: 36415; 36600; 70450; 70450-26; 70496; 70496-26; 70498; 70498-26; 80048; 80053; 82009; 82803; 83605; 83735; 84443; 84484; 85007; 85027; 85610; 85730; 93005; 93010; 96365; 96366; 96375; 99222; 99238; 99285; 99285-25; A9270-GY; J1200; J1644; J2060; J2405; J3475; J7030; J7042; Q9967; U0002

== ENCOUNTER 2021-08-31 18:47 | Emergency (ER) | payer OTHER ==
[2021-08-31 18:56] VITALS: BP 90/59; PULSE 57
[2021-08-31] MEDS ORDERED: Dicyclomine 10 MG Cap PO ONE (19:14)
[2021-08-31] MEDS ORDERED: Ondansetron 4 MG/2 ML SDV IVPUSH ONE (19:14)
[2021-08-31] MEDS ORDERED: Lactated Ringers 1,000 ML IV SCH (19:15)
[2021-08-31 20:01] LABS: ESTIMATED GFR > 60 mL/min (>60)
[2021-08-31] MEDS ORDERED: fentaNYL 100 MCG/2 ML SDV IVPUSH ONE (20:05)
[2021-08-31] MEDS ORDERED: Morphine 4 MG/ML Syringe IVPUSH ONE (21:08)
[2021-08-31] MEDS ORDERED: Morphine 2 MG/ML SYRINGE IVPUSH ONE (21:38)
[2021-08-31] MEDS ORDERED: Alum Hydrox/Mag Hydrox/Simeth 30 ML, Lidocaine 2% 15 ML PO ONE ×2 (22:29)
[2021-08-31] MEDS ORDERED: Pantoprazole 40 MG Vial IVPUSH ONE (22:30)
[2021-08-31] MEDS ORDERED: Sucralfate Suspension 1 GM/10 ML Cup PO ONE (23:49)
[2021-09-01] MEDS ORDERED: Sucralfate Suspension 1 GM/10 ML Cup PO ONE (00:23)
== END 2021-09-01 00:58 | disposition home or self-care (01) ==
LOC: JD.ED 18:47
DX: K29.90 Gastroduodenitis, unspecified, without bleeding (principal); E78.00 Pure hypercholesterolemia, unspecified; E03.9 Hypothyroidism, unspecified; E11.9 Type 2 diabetes mellitus without complications; Z90.49 Acquired absence of other specified parts of digestive tract; Z90.710 Acquired absence of both cervix and uterus; Z79.899 Other long term (current) drug therapy; Z79.84 Long term (current) use of oral hypoglycemic drugs
CPT/HCPCS: 36415; 74019; 74177; 80053; 81001; 83690; 85025; 96361; 96374; 96375; 96376; 99284; A9270; C9113; J2270; J2405; J3010; J7120; 99283